=== PATIENT | female | born 1960 | race Caucasian/White ===

== ENCOUNTER 2021-01-21 13:27 | Outpatient (CLI) | payer OTHER, SELFPAY ==
--- NOTE | ~2021-01-21 | XR_ITS ---
XR knee LT 3V DATE: 01/21/2021 14:21 INDICATION: Medial left knee pain. No recent injury. History of meniscus tear. TECHNIQUE: AP, lateral, sunrise view. COMPARISON: None FINDINGS: There is osteoarthritis involving particularly the medial compartment with moderately promi nent loss of joint space height and prominent periarticular spurring. There is mild to moderate osteo arthritis at the patellofemoral compartment. No fracture or dislocation or joint effusion. No periosteal reaction or bone destruction. No radiogra phic intra-articular loose body or chondrocalcinosis. IMPRESSION: Osteoarthritis involving primarily the medial and patellofemoral compartments Reviewed, dictated and finalized at location A. IMPRESSION: Osteoarthritis involving primarily the medial and patellofemoral co mpartments
== END 2021-01-21 13:28 | disposition home or self-care (01) ==
PROVIDERS: PCP Family Medicine; Visit Provider Family Medicine
DX: M17.12 Unilateral primary osteoarthritis, left knee (principal)
CPT/HCPCS: 73562

== ENCOUNTER 2022-11-26 08:18 | Outpatient (CLI) | payer OTHER, SELFPAY ==
--- NOTE | 2022-12-17 13:36 | WPDSLEEPSTUD ---
Sleep Study Date of Study: 11/26/22 Ordering Provider: Chencho Alexander MD Interpreting Physician: Sarahi Loyola MD Sleep Study Type: CPAP Titration Height: 1.6 m Weight: 104.326 kg Body Mass Index: 40.7 Neck Circumference (inches): 15.5 [place]: 8 Reason for Sleep Study Known MARRY on CPAP 11 cm, compliant with use; needs new equipment and new settings. She is using CPAP 9 hours a night. Sleep History Kenia Berman is a 62-year-old woman with MARRY, on CPAP 11 cm. She is having a CPAP titration to replace her old equipment. She never awakens from sleep short of breath while using CPAP. All of these responses are given in the context of using CPAP. She never wakes at night with heartburn, belching or coughing.??She never snores, never snores loudly enough that others complain. She never has trouble sleeping when she has a cold. She never wakes up gasping for breath during the night. She never has breathing problems at night. She never sweats excessively at night. She never notices her heart pounding or beating irregularly during the night. She occasionally falls asleep during the day. She never falls asleep involuntarily, never falls asleep while driving. She never experiences loss of muscle tone with strong emotion. She never feels paralyzed on waking or falling asleep. She occasionally experiences vivid dreams upon waking or falling asleep. She never feels afraid of going to sleep. She occasionally has nightmares. She occasionally recalls her dreams. She occasionally has thoughts racing through her mind. She occasionally feels sad or depressed. She occasionally feels anxiety. She never notices parts of her body jerk. She never kicks during the night. She never feels crawling or aching feelings in her legs. She never feels leg pain at night. She never has morning jaw pain, and never grinds her teeth at night. She occasionally feels bothered by pain during the day, never awakened by pain during the night. She occasional wakes up feeling stiff in the morning, occasionally wakes feeling sore or achy in the morning. She occasionally awakens with pain in her neck, spine, or joints. She has memory problems, concentration difficulties and fatigue. She has headaches and depression. She reports losing weight in the last year. She currently uses CPAP 11 cm water pressure and props her head up with a few pillows to sleep. Normal bedtime is 10:30 p.m., falling asleep within 30-60 minutes. She reports getting 10 hours of sleep at night, waking once during the night to urinate. Her normal wake time is 7:00 a.m.. Her schedule is the same on weekends, waking at 8:00 a.m.. she takes naps in the afternoon or evening. A short nap 10 or 15 minutes long is not refreshing. She is drowsy for 2 hours after waking. She feels better in the evening compared to other times of day. Habits:??Tobacco: 1/2 pack per day Caffeine: 2-3 servings per day. Alcohol: none Recreational substances: none [facility] Past Medical History Medical History (Updated 12/18/22 @ 15:15 by Sarahi Loyola MD) Abnormal fasting glucose Glucose 137 and hemoglobin A1c 5.2 on 04/11/2021. Glucose 117 with hemoglobin A1c 5.0 on 09/02/2021. Glucose 103 with hemoglobin A1c 4.9 on 09/05/2022. Acute bronchitis Acute non-recurrent maxillary sinusitis BMI 45.0-49.9, adult Body mass index (BMI) 40.0-44.9, adult (11/01/18) Chronic pain of left knee Colon cancer screening Colonoscopy on 11/14/2022 unremarkable except for benign 30 mm lipoma of the ascending colon. Recheck in 10 years. Elevated liver enzymes Fever blister (~02/23/22) Grieving adult son found on 02/16/2022 in his car from probable Accidental drug overdose. Hx of fracture of foot Lichen planus hypertrophicus elbows Low back pain with left-sided sciatica Metatarsal stress fracture of right foot with routine healing (10/19/20) right 5th metatarsal fracture 10/19/2020 Morbid obesity with BMI of 45.0
[2022-12-21 09:25] VITALS: BMI 40.7
== END 2022-11-27 13:31 | disposition home or self-care (01) ==
PROVIDERS: PCP Family Medicine; Visit Provider Family Medicine
DX: G47.33 Obstructive sleep apnea (adult) (pediatric) (principal)
CPT/HCPCS: 95811

== ENCOUNTER 2022-12-15 02:55 | Day surgery (SDC) | payer OTHER, SELFPAY ==
[2022-11-30 13:26] VITALS: BMI 43.7
[2022-12-15 11:47] VITALS: BP 127/72; PULSE 63; RESP 18; TEMP 36.4; O2SAT 97; BMI 41.1
--- NOTE | 2022-12-15 12:00 | PM.HPGS ---
History of Present Illness History of Present Illness Consent: Risks, benefits, and alternatives have been discussed and questions answered. Patient agrees to proceed with procedure. Chief complaint: neoplasm screening Narrative: Kenia Berman is a 62 year old female Presents for screening colonoscopy. Patient's current weight appetite and bowel movements are normal. Patient denies abdominal pain. She has had no bleeding. Family history noncontributory. Patient previously had unremarkable colonoscopy elsewhere in 2007. Review of Systems Review of Systems: Review of systems noncontributory. ON LICENSE OF [facility] Past Medical History Medical History (Updated 12/15/22 @ 12:01 by Power Uriostegui MD) Abnormal fasting glucose Glucose 137 and hemoglobin A1c 5.2 on 04/11/2021. Glucose 117 with hemoglobin A1c 5.0 on 09/02/2021. Glucose 103 with hemoglobin A1c 4.9 on 09/05/2022. Acute bronchitis Acute non-recurrent maxillary sinusitis BMI 45.0-49.9, adult Body mass index (BMI) 40.0-44.9, adult (11/01/18) Chronic pain of left knee Colon cancer screening Elevated liver enzymes Fever blister (~02/23/22) Grieving adult son found on 02/16/2022 in his car from probable Accidental drug overdose. Hx of fracture of foot Lichen planus hypertrophicus elbows Low back pain with left-sided sciatica Metatarsal stress fracture of right foot with routine healing (10/19/20) right 5th metatarsal fracture 10/19/2020 Morbid obesity with BMI of 45.0-49.9, adult Morbid obesity with body mass index (BMI) of 40.0 to 44.9 in adult Otitis externa Seasonal allergic rhinitis Vitamin B12 deficiency anemia vitamin B12 570 on 04/11/2021 Vitamin D deficiency, unspecified vitamin-D 45 on 04/11/2021 Family History Family History Mother Patient's mother is , Onset Age: 72 Family history of malignant neoplasm Father Patient's father is , Onset Age: 71 Family history of chronic obstructive pulmonary disease Social History Social History Smoking packs per day: 0.5 Smoking cigarettes per day: 10.0 Years smoked: 20 Smoking pack-years: 10.00 Smoking status: Current every day smoker Tobacco type: cigarettes Alcohol intake: former Alcohol use details: stopped all alcohol in April Substance use: never Substance use type: does not use Lack of Transportation: No Lack of Food: Never True Current Housing: I Have Housing Concerned About Future Housing: No Difficulty Paying Gas/Electric Bills: No Difficulty Paying for Meds: No Currently Unemployed: No Education: Associate Degree Difficulty w/ Childcare or Family Care: No Living arrangements: with family Spiritual care concerns: No Meds Home Medications and Allergies Home Medications Medication Instructions Recorded Confirmed Type albuterol sulfate 90 mcg/actuation 1 puff inhalation Q4H PRN 12/08/19 11/30/22 Rx aerosol inhaler (ProAir HFA) shortness of breath or wheezing #18 grams escitalopram oxalate 20 mg tablet 20 mg PO DAILY #90 tabs 12/01/21 11/30/22 Rx (Lexapro) metoprolol succinate 200 mg 200 mg PO DAILY #90 tabs 01/12/22 11/30/22 Rx tablet,extended release 24 hr (Toprol XL) valacyclovir 1 gram tablet 2,000 mg PO .COMPLEX #14 tabs 02/23/22 11/30/22 Rx (Valtrex) hydrochlorothiazide 12.5 mg tablet 12.5 mg PO QAM #90 tabs 10/26/22 11/30/22 Rx lisinopril 40 mg tablet 40 mg PO DAILY #90 tabs 10/26/22 11/30/22 Rx sodium,potassium,mag sulfates 17.5 See Rx Instructions PO .COMPLEX 11/19/22 11/30/22 Rx gram-3.13 gram-1.6 gram oral soln #354 mL (Suprep Bowel Prep Kit) Allergies Allergy/AdvReac Type Severity Reaction Status Date / Time No Known Allergies Allergy Unknown Verified 12/15/22 11:44 Vital Signs Vital Signs - 24 hr 12/15/22 11:47 Temperature 97.5 F L Pulse Rate 63 Respirat
[2022-12-15] MEDS: LACTATED RINGERS 1,000 ML 150 ML IV CONT (12:04)
--- NOTE | 2022-12-15 12:27 | WPDANESEPPF ---
Anes - Initial Pre Proc Eval Procedure: Operation Date: 12/15/22 12:30 Proposed Procedures p Screening Colonoscopy - Power Uriostegui MD Date/Time: 12/15/22 12:27 Surgeon: Power Uriostegui MD Pre Op Diagnosis: neoplasm screening Patient Data Age: 62 Gender: F Height: 1.6 m Weight: 105.2 kg Last Vital Signs Temp 97.5 F L 12/15/22 11:47 Pulse 63 12/15/22 11:47 Resp 18 12/15/22 11:47 BP 127/72 12/15/22 11:47 Pulse Ox 97 12/15/22 11:47 O2 Del Method Room Air 12/15/22 11:47 Allergies Allergy/AdvReac Type Severity Reaction Status Date / Time No Known Allergies Allergy Unknown Verified 12/15/22 11:44 Home Medications Medication Instructions Recorded Confirmed Type albuterol sulfate 90 mcg/actuation 1 puff inhalation Q4H PRN 12/08/19 11/30/22 Rx aerosol inhaler (ProAir HFA) shortness of breath or wheezing #18 grams escitalopram oxalate 20 mg tablet 20 mg PO DAILY #90 tabs 12/01/21 11/30/22 Rx (Lexapro) metoprolol succinate 200 mg 200 mg PO DAILY #90 tabs 01/12/22 11/30/22 Rx tablet,extended release 24 hr (Toprol XL) valacyclovir 1 gram tablet 2,000 mg PO .COMPLEX #14 tabs 02/23/22 11/30/22 Rx (Valtrex) hydrochlorothiazide 12.5 mg tablet 12.5 mg PO QAM #90 tabs 10/26/22 11/30/22 Rx lisinopril 40 mg tablet 40 mg PO DAILY #90 tabs 10/26/22 11/30/22 Rx sodium,potassium,mag sulfates 17.5 See Rx Instructions PO .COMPLEX 11/19/22 11/30/22 Rx gram-3.13 gram-1.6 gram oral soln #354 mL (Suprep Bowel Prep Kit) Patient hx anesthesia problems: none Family hx anesthesia problems: none Results Review: All pre-operative results and documents have been reviewed as part of the pre-operative evaluation. [facility] Past Medical History Medical History (Updated 12/15/22 @ 12:01 by Power Uriostegui MD) Abnormal fasting glucose Glucose 137 and hemoglobin A1c 5.2 on 04/11/2021. Glucose 117 with hemoglobin A1c 5.0 on 09/02/2021. Glucose 103 with hemoglobin A1c 4.9 on 09/05/2022. Acute bronchitis Acute non-recurrent maxillary sinusitis BMI 45.0-49.9, adult Body mass index (BMI) 40.0-44.9, adult (11/01/18) Chronic pain of left knee Colon cancer screening Elevated liver enzymes Fever blister (~02/23/22) Grieving adult son found on 02/16/2022 in his car from probable Accidental drug overdose. Hx of fracture of foot Lichen planus hypertrophicus elbows Low back pain with left-sided sciatica Metatarsal stress fracture of right foot with routine healing (10/19/20) right 5th metatarsal fracture 10/19/2020 Morbid obesity with BMI of 45.0-49.9, adult Morbid obesity with body mass index (BMI) of 40.0 to 44.9 in adult Otitis externa Seasonal allergic rhinitis Vitamin B12 deficiency anemia vitamin B12 570 on 04/11/2021 Vitamin D deficiency, unspecified vitamin-D 45 on 04/11/2021 Family History Family History Mother Patient's mother is , Onset Age: 72 Family history of malignant neoplasm Father Patient's father is , Onset Age: 71 Family history of chronic obstructive pulmonary disease Social History Social History Smoking packs per day: 0.5 Smoking cigarettes per day: 10.0 Years smoked: 20 Smoking pack-years: 10.00 Smoking status: Current every day smoker Tobacco type: cigarettes Alcohol intake: former Alcohol use details: stopped all alcohol in April Substance use: never Substance use type: does not use Lack of Transportation: No Lack of Food: Never True Current Housing: I Have Housing Concerned About Future Housing: No Difficulty Paying Gas/Electric Bills: No Difficulty Paying for Meds: No Currently Unemployed: No Education: Associate Degree Difficulty w/ Childcare or Family Care: No Living arrangements: with family Spiritual care concerns: No Anes - Eval Final PreProcedure Day of Pro
[2022-12-15 13:50] VITALS: BP 86/46; PULSE 62; RESP 18; O2SAT 98
[2022-12-15 14:00] VITALS: BP 91/50; PULSE 66; RESP 18; O2SAT 98
[2022-12-15 14:10] VITALS: BP 106/51; PULSE 66; RESP 18; O2SAT 100
== END 2022-12-15 14:15 | disposition home or self-care (01) ==
PROVIDERS: PCP Family Medicine; Visit Provider Internal Medicine Gastroenterology
PROC: 0DJD8ZZ Inspection of Lower Intestinal Tract, Via Natural or Artificial Opening Endoscopic (ICD-10-PCS; CPT 45378; principal; 2022-12-15 12:30)
DX: Z12.11 Encounter for screening for malignant neoplasm of colon (principal); D17.5 Benign lipomatous neoplasm of intra-abdominal organs; K57.30 Diverticulosis of large intestine without perforation or abscess without bleeding; K64.8 Other hemorrhoids; E53.8 Deficiency of other specified B group vitamins; E55.9 Vitamin D deficiency, unspecified; F17.210 Nicotine dependence, cigarettes, uncomplicated; Z79.51 Long term (current) use of inhaled steroids; E66.01 Morbid (severe) obesity due to excess calories; Z68.41 Body mass index [BMI] 40.0-44.9, adult
CPT/HCPCS: 45378; J2001; J2704; J7120

== ENCOUNTER 2023-06-12 10:43 | Outpatient (CLI) | payer OTHER, SELFPAY ==
--- NOTE | ~2023-06-12 | MR_ITS ---
EXAMINATION: MR lumbar spine wo con DATE: 06/12/2023 11:17 INDICATION: Lumbago. TECHNIQUE: Magnetic resonance imaging (MRI) of the lumbar spine was performed without intravenous con trast. Sequences included sagittal T2-weighted FSE, sagittal T2-weighted FS FSE, sagittal T1-weighted FSE, and axial T2-weighted FSE. COMPARISON: None FINDINGS: There is 5 degrees dextrocurvature of lumbar spine. There is 4 mm retrolisthesis of L1 on L 2, L2 on L3,, and L3 on L4. There is 4 mm anterolisthesis of L4 on L5 and L5 on S1. There is mild chr onic anterior wedging of L1 vertebral body. There is moderately decreased disc height at L1-L2, mildl y decreased disc height at L2-L3, L3-L4, and L4-L5, and moderately decreased disc height at L5-S1. Th ere is epidural lipomatosis in lower lumbar spine. The distal spinal cord signal intensity is normal. The conus medullaris is at L1-L2. The following disc levels are specifically discussed: L1-L2: The disc is bulging with superimposed left central extrusion. There is severe right and modera te left facet joint osteoarthritis. There is mild bilateral neural foraminal stenosis. There is mild central canal stenosis. L2-L3: The disc is bulging and has an annular fissure. There is severe right and moderate left facet joint osteoarthritis. There is mild bilateral neural foraminal stenosis. There is mild central canal stenosis. L3-L4: The disc is bulging and has an annular fissure. There is severe right and moderate left facet joint osteoarthritis. There is moderate right and mild left neural foraminal stenosis. There is mild central canal stenosis. L4-L5: The disc is bulging and has an annular fissure. There is severe bilateral facet joint osteoart hritis. There is moderate right and mild left neural foraminal stenosis. There is mild central canal stenosis. L5-S1: The disc does not extend beyond the endplate margin. There is severe bilateral facet joint ost eoarthritis. There is mild bilateral neural foraminal stenosis. There is no central canal stenosis. IMPRESSION: 1. Moderate lumbar spondylosis. Reviewed, dictated and finalized at location E.
== END 2023-06-12 10:44 | disposition home or self-care (01) ==
LOC: ANHIMG 10:49
PROVIDERS: PCP Family Medicine; Visit Provider Nurse Practitioner Family
DX: M47.896 Other spondylosis, lumbar region (principal)
CPT/HCPCS: 72148

== ENCOUNTER 2024-10-11 13:56 | Outpatient (CLI) | payer MEDICARE, SELFPAY ==
--- NOTE | ~2024-10-11 | MM_ITS ---
EXAMINATION: screening [facility] BI w [place] INDICATION: Asymptomatic, referred for screening mammogram COMPARISON: 10/05/2017 through 02/28/2007 TECHNIQUE: Digital Breast Tomosynthesis CC, MLO views of Both breasts were obtained with computer-ai ded detection to assist in interpretation of the study. FINDINGS: There are scattered areas of fibroglandular density. There is a mass in the superior lateral left breast at anterior depth. Elsewhere, there are no mammographic features of malignancy. IMPRESSION: 1. Left breast Mass. 2. No evidence of malignancy in the Right breast. RECOMMENDATION: Left breast Diagnostic mammogram with true lateral, appropriate spot compression views and an ultraso und if needed. BI-RADS Category 0: Incomplete: Needs additional imaging evaluation. Reviewed, dictated and finalized at location B. IMPRESSION: 1. Left breast Mass. 2. No evidence of malignancy in the Right breast. RECOMMENDATION: Left breast Diagnostic mammogram with true lateral, appropriate spot compressio n views and an ultrasound if needed. BI-RADS Category 0: Incomplete: Needs additional imaging evaluation.
== END 2024-10-11 13:57 | disposition home or self-care (01) ==
PROVIDERS: PCP Family Medicine; Visit Provider Family Medicine
DX: Z12.31 Encounter for screening mammogram for malignant neoplasm of breast (principal); R92.8 Other abnormal and inconclusive findings on diagnostic imaging of breast
CPT/HCPCS: 77063; 77067

== ENCOUNTER 2024-11-22 10:55 | Outpatient (CLI) | payer MEDICARE, OTHER, SELFPAY ==
--- NOTE | ~2024-11-22 | MMUS_ITS ---
EXAMINATION: US breast LT limited, MM diagnostic bernice LT w [place] HISTORY: Inconclusive mammogram. Mass in the superior-lateral left breast at anterior depth TECHNIQUE: [Additional images of the left breast]] were performed using full field digital mammography. 3-D tomosynthesis were also obtained and synthetic 2- D images were generated. CAD analysis was submitted and interpreted. High resolution left breast ultrasound of the left breast from the 12-3 o'clock position was performed.] ] COMPARISON: Mammograms from 10/11/2024, 10/05/2017 BREAST PARENCHYMAL COMPOSITION: There are scattered areas of fibroglandular density FINDINGS: MAMMOGRAPHIC FINDINGS: There is an 8 mm partially obscured mass in the upper outer quadrant of the left breast at the12 to 1:00 position anterior depth. No suspicious calcifications or architectural distortion. ULTRASOUND: There is a 9 x 7 x 3 mm heterogeneous mass in the left breast at the 12:00 position 2 cm from nipple anterior depth. The finding is wider than tall. Margins are partially circumscribed and partially angulated. No internal Doppler flow. No posterior acoustic shadowing. The finding probably corresponds with the mammographic mass in the left breast at the 12 to 1:00 position anterior depth. The finding is suspicious. IMPRESSION/RECOMMENDATION: 1. There is an 11 mm mass in the left breast at the 12:00 position 2 cm from the nipple. The finding is suspicious. An ultrasound-guided breast biopsy is recommended. BIRADS 4-Suspicious Protocol insures that results of the study are called and/or faxed to the referring clinician's office and documented in the patient's chart critical findings protocol. Reviewed, dictated and finalized at location Q. IMPRESSION/RECOMMENDATION: 1. There is an 11 mm mass in the left breast at the 12:00 position 2 cm from th e nipple. The finding is suspicious. An ultrasound-guided breast biopsy is elise mmended. BIRADS 4-Suspicious Protocol insures that results of the study are called and/or faxed to the refer ring clinician's office and documented in the patient's chart critical findings protocol. IMPRESSION/RECOMMENDATION: 1. There is an 11 mm mass in the left breast at the 12:00 position 2 cm from th e nipple. The finding is suspicious. An ultrasound-guided breast biopsy is elise mmended. BIRADS 4-Suspicious Protocol insures that results of the study are called and/or faxed to the refer ring clinician's office and documented in the patient's chart critical findings protocol.
== END 2024-11-22 10:56 | disposition home or self-care (01) ==
LOC: ANHFOHIMG 10:56
PROVIDERS: PCP Family Medicine; Visit Provider Family Medicine
DX: N63.21 Unspecified lump in the left breast, upper outer quadrant (principal); R92.8 Other abnormal and inconclusive findings on diagnostic imaging of breast
CPT/HCPCS: 76642; 77061; 77065; G0279

== ENCOUNTER → 2024-12-18 12:09 | Outpatient (CLI) | payer MEDICARE, OTHER, SELFPAY ==
--- NOTE | ~2024-12-18 | XR_ITS ---
EXAMINATION: XR foot RT min 3V, 12/18/2024 12:11 CDT HISTORY: M76.61 - Achilles tendinitis, right leg COMPARISON: No comparisons available. Findings: Remote fracture of fifth metatarsal, no acute fracture Severe Achilles enthesopathy. Moderate degenerative changes first metatarsophalangeal joint. Soft tissues unremarkable. Impression: No acute fracture or malalignment. Reviewed, dictated and finalized at location P. Impression: No acute fracture or malalignment.
== END ==
LOC: EXPTRAD 12:10
PROVIDERS: PCP Family Medicine; Visit Provider Family Medicine
DX: M76.61 Achilles tendinitis, right leg (principal)
CPT/HCPCS: 73630